=== PATIENT | female | born 1970 | race Hispanic/Latino ===

== ENCOUNTER 2016-12-04 17:19 | Emergency (ER) | payer SELFPAY ==
[~2016-12-04] VITALS: Ht 157.5 cm; Wt 142.9 kg
[~2016-12-04 17:19] MED LIST: ALBUTEROL SULF8.5 GM IH; AZITHROMYCIN250 MG1 PO; MOTRIN800 MG PO; PEPCID20 MG PO; PREDNISONE20 MG PO; PREDNISONE50 MG PO; PROVERA,CYCRIN10 MG PO; ROBITUSSIN AC,T10 ML PO; ROBITUSSIN DM118 ML PO; TYLENOL WITH C1 EACH PO; ZESTRIL,PRINIVI10 MG PO; ZOFRAN ODT4 MG PO
[2016-12-04 18:40] LABS: HEMATOCRIT 36.5 % (36.0-46.0); MCH 28.9 PG (29.0-34.0); MCHC 32.6 G/DL (30.0-36.0); MCV 88.6 FL (83-99); MEAN PLAT.VOLUME 10.8 uM^3 (9.5-12.4); PLATELET COUNT 291 K/uL (156-360); RBC DIS.WIDTH-CV 14.3 % (11.8-14.6); RBC DIS.WIDTH-SD 46.4 % (39-53); RED BLOOD COUNT 4.12 M/uL (3.80-5.20); WHITE BLOOD COUNT 10.5 K/uL (4.1-10.2)
[2016-12-04 18:48] LABS: CHLORIDE 106 mEq/L (99-109); POTASSIUM 3.8 mEq/L (3.7-5.4); SODIUM 143 mEq/L (136-147)
[2016-12-04 18:50] LABS: GLUCOSE 101 mg/dL (70-99)
[2016-12-04 18:52] LABS: ANION GAP 7 MEQ/L (2-14); TOTAL BILIRUBIN 0.4 mg/dL (0.0-1.0)
[2016-12-04 18:54] LABS: ALKALINE PHOSPHATASE 79 IU/L (3-129); GFR ESTIMATE (CALCULATED) > 59 mL/min/
[2016-12-04 18:55] LABS: UREA NITROGEN (BUN) 12 mg/dL (9-23)
[2016-12-04 18:57] LABS: LIPASE 58 U/L (1.0-51.0)
[2016-12-04 19:13] LABS: QUANTITATIVE HCG < 4.0 MIU/ML
[2016-12-04 20:13] LABS: ADD MIUA? YES; BILIRUBIN NEGATIVE; BLOOD LARGE; GLUCOSE (STRIP) NEGATIVE; KETONES NEGATIVE; LEUKOCYTES NEGATIVE; NITRITE NEGATIVE; PROTEIN (STRIP) 100; UROBILINOGEN 0.2 MG/DL (0.2-1.0)
[2016-12-04 20:29] LABS: BACTERIA RARE /HPF; CASTS NONE SEEN /LPF; CRYSTALS NONE SEEN; EPITHELIAL CELLS 1+ /HPF; MUCUS NONE SEEN /LPF; UCUL ADDED? NO; WHITE BLOOD CELLS RARE /HPF (0-5)
[2016-12-04 20:30] LABS: COLOR YELLOW ((YELLOW))
[2016-12-04] MEDS ORDERED: BENTYL10 MG PO (20:51)
[2016-12-04 20:57] VITALS: BP 132/77
[2016-12-05] MEDS ORDERED: OMEPRAZOLE20 MG PO (16:30)
[2016-12-05] MEDS ORDERED: TRAMADOL HCL50 MG PO (17:22)
== END 2016-12-04 21:05 | disposition home or self-care (01) ==
LOC: EME 17:19
PROVIDERS: Physician Assistant Medical
DX: R10.31 Right lower quadrant pain (principal); K21.9 Gastro-esophageal reflux disease without esophagitis; F17.200 Nicotine dependence, unspecified, uncomplicated
CPT/HCPCS: 74177; 80053; 81003; 83690; 84702; 85027; 99281; 99285; J1885; J2405; J7030

== ENCOUNTER 2016-12-05 14:44 | Emergency (ER) | payer SELFPAY ==
[~2016-12-05] VITALS: Ht 157.5 cm; Wt 142.9 kg
[~2016-12-05 14:44] MED LIST changes: +BENTYL10 MG PO
[2016-12-05] MEDS ORDERED: OMEPRAZOLE20 MG PO (16:30)
[2016-12-05] MEDS ORDERED: TRAMADOL HCL50 MG PO (17:22)
[2016-12-05 17:27] VITALS: BP 126/83
== END 2016-12-05 17:31 | disposition home or self-care (01) ==
LOC: EME 14:44
DX: R10.31 Right lower quadrant pain (principal); K21.9 Gastro-esophageal reflux disease without esophagitis; Z90.49 Acquired absence of other specified parts of digestive tract; F17.200 Nicotine dependence, unspecified, uncomplicated
CPT/HCPCS: 76856; 99281; 99284; J1885

== ENCOUNTER 2016-12-10 13:14 | Emergency (ER) | payer SELFPAY ==
[~2016-12-10] VITALS: Ht 160 cm; Wt 141.0 kg
[~2016-12-10 13:14] MED LIST changes: +OMEPRAZOLE20 MG PO; +TRAMADOL HCL50 MG PO
[2016-12-10 14:18] LABS: HEMATOCRIT 38.2 % (36.0-46.0); MCHC 32.5 G/DL (30.0-36.0); MCV 89.5 FL (83-99); RBC DIS.WIDTH-CV 14.4 % (11.8-14.6); RBC DIS.WIDTH-SD 46.9 % (39-53); RED BLOOD COUNT 4.27 M/uL (3.80-5.20); WHITE BLOOD COUNT 8.2 K/uL (4.1-10.2)
[2016-12-10 14:26] LABS: CHLORIDE 104 mEq/L (99-109); POTASSIUM 4.2 mEq/L (3.7-5.4); SODIUM 141 mEq/L (136-147)
[2016-12-10 14:28] LABS: GLUCOSE 91 mg/dL (70-99)
[2016-12-10 14:29] LABS: ANION GAP 9 MEQ/L (2-14)
[2016-12-10 14:31] LABS: ALKALINE PHOSPHATASE 79 IU/L (3-129)
[2016-12-10 14:32] LABS: GFR ESTIMATE (CALCULATED) > 59 mL/min/; TOTAL BILIRUBIN 0.7 mg/dL (0.0-1.0)
[2016-12-10 14:33] LABS: UREA NITROGEN (BUN) 12 mg/dL (9-23)
[2016-12-10 14:43] LABS: QUANTITATIVE HCG < 4.0 MIU/ML
[2016-12-10 16:16] LABS: BILIRUBIN NEGATIVE; BLOOD NEGATIVE; COLOR YELLOW ((YELLOW)); GLUCOSE (STRIP) NEGATIVE; KETONES NEGATIVE; LEUKOCYTES NEGATIVE; NITRITE NEGATIVE; PROTEIN (STRIP) NEGATIVE; SPECIFIC GRAVITY 1.012 (1.000-1.030); UROBILINOGEN 0.2 MG/DL (0.2-1.0)
[2016-12-10 16:17] LABS: ADD MIUA? NO; UCUL ADDED? NO
[2016-12-10 16:23] LABS: MEAN PLAT.VOLUME 10.9 uM^3 (9.5-12.4); PLAT.SUFFICIENCY ADEQUATE; PLATELET COUNT 304 K/uL (156-360)
[2016-12-10] MEDS ORDERED: VALIUM5 MG PO (16:33)
[2016-12-10 16:48] VITALS: BP 135/96
== END 2016-12-10 16:48 | disposition home or self-care (01) ==
LOC: EME 13:14
DX: M54.5 Low back pain (principal); F17.200 Nicotine dependence, unspecified, uncomplicated
CPT/HCPCS: 80053; 81003; 84702; 85027; J1885

== ENCOUNTER 2017-04-05 16:23 | Emergency (ER) | payer SELFPAY ==
[~2017-04-05] VITALS: Ht 160 cm; Wt 145.2 kg
[~2017-04-05 16:23] MED LIST changes: +VALIUM5 MG PO
[2017-04-05 20:03] LABS: BASOPHIL (%) 0.5 % (0-1); EOSINOPHIL COUNT 0.4 K/uL (0-0.3); HEMOGLOBIN 11.2 G/DL (11.9-15.5); IMMATURE GRANULOCYTE (%) 0.2 % (0.0-0.7); LYMPHOCYTE (%) 28.4 % (15-42); LYMPHOCYTE COUNT 2.5 K/uL (1.0-2.8); MCH 28.1 PG (29.0-34.0); MCV 87.7 FL (83-99); MONOCYTE (%) 5.3 % (3-12); MONOCYTE COUNT 0.5 K/uL (0-0.8); NEUTROPHIL (%) 61.6 % (45-76); NEUTROPHIL COUNT 5.4 K/uL (1.8-6.4); PLATELET COUNT 327 K/uL (156-360); RBC DIS.WIDTH-CV 14.3 % (11.8-14.6); RED BLOOD COUNT 3.99 M/uL (3.80-5.20); WHITE BLOOD COUNT 8.7 K/uL (4.1-10.2)
[2017-04-05 20:11] LABS: ALBUMIN 3.5 g/dL (3.2-4.8)
[2017-04-05 20:12] LABS: CHLORIDE 105 mEq/L (99-109); POTASSIUM 3.7 mEq/L (3.7-5.4); SODIUM 139 mEq/L (136-147)
[2017-04-05 20:13] LABS: APPEARANCE CLOUDY ((CLEAR)); BILIRUBIN NEGATIVE; BLOOD MODERATE; GLUCOSE (STRIP) 50; KETONES NEGATIVE; LEUKOCYTES NEGATIVE; NITRITE NEGATIVE; PROTEIN (STRIP) 100; SPECIFIC GRAVITY 1.023 (1.000-1.030); UROBILINOGEN 0.2 MG/DL (0.2-1.0)
[2017-04-05 20:14] LABS: GLUCOSE 99 mg/dL (70-99); TOTAL PROTEIN 6.9 g/dL (6.4-8.3)
[2017-04-05 20:16] LABS: TOTAL BILIRUBIN 0.4 mg/dL (0.0-1.0)
[2017-04-05 20:17] LABS: ALKALINE PHOSPHATASE 89 IU/L (3-129)
[2017-04-05 20:17] LABS: COLOR RED ((YELLOW))
[2017-04-05 20:18] LABS: CREATININE 0.8 mg/dL (0.6-1.3); GFR ESTIMATE (CALCULATED) > 59 mL/min/
[2017-04-05 20:19] LABS: AST (GOT) 23 IU/L (2-34); UREA NITROGEN (BUN) 13 mg/dL (9-23)
[2017-04-05 20:21] LABS: ALT (GPT) 22 IU/L (3-49); LIPASE 27 U/L (1.0-51.0)
[2017-04-05 20:37] LABS: BACTERIA 2+ /HPF; EPITHELIAL CELLS 2+ /HPF; MUCUS NONE SEEN /LPF; RED BLOOD CELLS TNTC /HPF (0-5); WHITE BLOOD CELLS 0-5 /HPF (0-5)
[2017-04-05] MEDS ORDERED: VENTOLIN HFA18 GM IH (22:12)
[2017-04-05] MEDS ORDERED: ZITHROMAX250 MG PO (22:12)
[2017-04-05] MEDS ORDERED: PREDNISONE20 MG PO (22:12)
[2017-04-05 23:26] VITALS: BP 127/86
== END 2017-04-05 23:27 | disposition home or self-care (01) ==
LOC: EME 16:23
PROVIDERS: Physician Assistant
DX: J18.0 Bronchopneumonia, unspecified organism (principal); N93.8 Other specified abnormal uterine and vaginal bleeding; S39.011A Strain of muscle, fascia and tendon of abdomen, initial encounter; Z98.890 Other specified postprocedural states; K21.9 Gastro-esophageal reflux disease without esophagitis; Z72.0 Tobacco use
CPT/HCPCS: 74177; 80053; 81003; 83690; 85025; 94640; 99281; 99285; J1885; J2405; J2930; J3010; J7030; J7512

== ENCOUNTER 2017-04-13 17:17 | Emergency (ER) | payer SELFPAY ==
[~2017-04-13] VITALS: Ht 160 cm; Wt 146.0 kg
[~2017-04-13 17:17] MED LIST changes: +VENTOLIN HFA18 GM IH; +ZITHROMAX250 MG PO
[2017-04-13 18:03] LABS: HEMATOCRIT 35.1 % (36.0-46.0); HEMOGLOBIN 11.1 G/DL (11.9-15.5); MCHC 31.6 G/DL (30.0-36.0); MCV 88.4 FL (83-99); PLATELET COUNT 360 K/uL (156-360); RBC DIS.WIDTH-CV 14.7 % (11.8-14.6); RBC DIS.WIDTH-SD 47.7 % (39-53); RED BLOOD COUNT 3.97 M/uL (3.80-5.20)
[2017-04-13 18:09] LABS: CHLORIDE 106 mEq/L (99-109); POTASSIUM 3.5 mEq/L (3.7-5.4); SODIUM 142 mEq/L (136-147)
[2017-04-13 18:11] LABS: GLUCOSE 80 mg/dL (70-99)
[2017-04-13 18:15] LABS: GFR ESTIMATE (CALCULATED) > 59 mL/min/
[2017-04-13 18:16] LABS: UREA NITROGEN (BUN) 10 mg/dL (9-23)
[2017-04-13] MEDS ORDERED: PROVENTIL,2.5 MG/3 M IH (19:06)
[2017-04-13] MEDS ORDERED: VENTOLIN HFA18 GM IH (19:06)
[2017-04-13] MEDS ORDERED: PREDNISONE20 MG PO (19:06)
[2017-04-13] MEDS ORDERED: TESSALON200 MG PO (19:06)
[2017-04-13 19:37] VITALS: BP 145/98
== END 2017-04-13 19:37 | disposition home or self-care (01) ==
LOC: EME 17:17
DX: J06.9 Acute upper respiratory infection, unspecified (principal); K21.9 Gastro-esophageal reflux disease without esophagitis; Z87.891 Personal history of nicotine dependence
CPT/HCPCS: 71046; 80048; 85027; 94640; 99281; 99283